=== PATIENT | female | born 1990 | race Caucasian/White ===

== ENCOUNTER 2017-01-25 11:56 | Emergency (ER) | payer OTHER | END 2017-01-25 14:35 | disposition home or self-care (01) | LOC: ER1 11:56 | DX: S93.401A Sprain of unspecified ligament of right ankle, initial encounter (principal); S80.11XA Contusion of right lower leg, initial encounter; F17.200 Nicotine dependence, unspecified, uncomplicated; W22.09XA Striking against other stationary object, initial encounter | CPT/HCPCS: 73590; 73610; 99283 ==

== ENCOUNTER → 2020-12-27 | Outpatient (CLI) | payer OTHER ==
[~2020-12-27] MED LIST: CALCIUM ACETAT667 M1 PO; DOXYCYCLINE HY100 M2 PO; LORTAB 7.5-3251 EACH PO; NORTREL 1-35 T1 EACH PO; Voltaren Gel 1 % TOP
[2020-12-27 16:37] LABS: HEMOGLOBIN 13.1 gm/dl (12.3-15.3); RED BLOOD COUNT 4.54 M/UL (4.00-5.10); WHITE BLOOD COUNT 8.7 K/UL (4.5-11.0)
[2020-12-27 17:07] LABS: BUN/CREATININE RATIO 13 (0-10)
[2020-12-29 07:11] LABS: VITAMIN D, 25-HYDROXY 14.5 ng/mL (30.0-100.0)
[2020-12-29 08:15] LABS: HBSAG SCREEN Negative (Negative); HEP A AB, IGM Negative (Negative); HEP B CORE AB, IGM Negative (Negative); HEP C VIRUS AB <0.1 (0.0-0.9)
== END ==
LOC: LAB 15:46
PROVIDERS: Nurse Practitioner
DX: R74.8 Abnormal levels of other serum enzymes (principal)
CPT/HCPCS: 80053; 80061; 80074; 82607; 82746; 83036; 84443; 85025

== ENCOUNTER → 2021-01-07 | Outpatient (CLI) | payer OTHER ==
[2021-01-08 08:13] LABS: CREATININE, URINE 118.8 mg/dL (Not Estab.)
== END ==
LOC: LAB 14:08
PROVIDERS: Internal Medicine Nephrology
DX: R06.02 Shortness of breath (principal); R60.9 Edema, unspecified
CPT/HCPCS: 76882; 82043; 82570; 83880